=== PATIENT | male | born 1970 | race Caucasian/White ===

== ENCOUNTER → 2017-10-09 16:02 | Outpatient (CLI) | payer OTHER, SELFPAY ==
--- NOTE | 2017-10-09 | DI.US.S_ITS ---
PROCEDURE: US ABDOMEN LIMITED INDICATIONS: CHOLESTEROLOSIS OF GALLBLADDER TECHNIQUE: Real-time focused scanning was performed of the abdomen, with image documentation. COMPARISON: [facility], CT, CT ABD W CON, 03/03/2016, 12:38. [facility], US, US ABDOMEN, 02/28/2016, 8:03. FINDINGS: Liver is diffusely increased in echogenicity. No focal hepatic abnormalities identified. Normal hepatic size. 6 x 8 mm gallbladder polyp redemonstrated similar to prior examination. Bile ducts and pancreas not well-seen. IMPRESSION: 1. Increased hepatic echogenicity noted likely related to fatty infiltration of the liver but other hepatocellular disease cannot be excluded. Recommend clinical correlation. 2. Stable appearance of 6-8 mm gallbladder polyp. Continued sonographic surveillance is recommended. Dictated by: Yoan VELASCO Interpreted: Tristen Disla MD on 10/09/2017 at 16:58 Approved by: Tristen Disla M.D. on 10/09/2017 at 17:19
== END ==
PROVIDERS: Visit Provider Nurse Practitioner Family
DX: K82.4 Cholesterolosis of gallbladder (principal)
CPT/HCPCS: 76705